=== PATIENT | male | born 1980 | race Caucasian/White ===

== ENCOUNTER 2022-11-01 13:52 | Emergency (ER) | payer SELFPAY ==
[~2022-11-01] VITALS: Ht 165.1 cm; Wt 79.8 kg
[2022-11-01 14:03] VITALS: BP 115/77
--- NOTE | 2022-11-01 14:08 | NUR ---
Pt ambulated to chair B.
[2022-11-01] MEDS ORDERED: BACITRACIN OINT 500 UNITS/GM PKT TP ONE (14:40)
[2022-11-01] MEDS ORDERED: LIDOCAINE MPF 1% 10 MG/ML VIAL INJ ONE (15:10)
[2022-11-01] MEDS ORDERED: ACET-10509 PO (15:29)
[2022-11-01] MEDS ORDERED: BACI28.43 TP (15:29)
--- NOTE | 2022-11-01 15:43 | NUR ---
Patient discharged with v/s stable. Written and verbal after care instructions ABOUT [facility] given and explained. Patient alert, oriented and verbalized understanding of instructions. Ambulatory with steady gait. All questions addressed prior to discharge. ID band removed. Patient advised to follow up with PMD. Rx of BACITRACIN, TYLENOL given. Patient educated on indication of medication including possible reaction and side effects. Opportunity to ask questions provided and answered.
== END 2022-11-01 15:43 | disposition home or self-care (01) ==
LOC: MED 13:52
DX: S61.215A Laceration without foreign body of left ring finger without damage to nail, initial encounter (principal); Z79.899 Other long term (current) drug therapy; W26.8XXA Contact with other sharp object(s), not elsewhere classified, initial encounter; Y93.89 Activity, other specified; Y92.89 Other specified places as the place of occurrence of the external cause; Y99.8 Other external cause status
CPT/HCPCS: 12002; 99282; J2001